=== PATIENT | male | born 1950 | race American Indian/Alaskan Native ===

== ENCOUNTER 2016-11-24 09:54 | Outpatient (CLI) | payer MEDICARE, OTHER ==
--- NOTE | 2016-11-24 13:51 | Nuclear Medicine Report ---
BONE SCAN: History: Malignant neoplasm of prostate. Comparison: Correlation is made with a CT abdomen pelvis performed the same day. After injection of isotope, gamma camera imaging of the bony system was done. There is a normal uptake of isotope throughout the bony structures without areas of significantly increased or decreased uptake. Normal uptake in the urinary system is seen. IMPRESSION: Normal bone scan.
--- NOTE | 2016-11-24 14:18 | Cat Scan Report ---
CT abdomen and pelvis without contrast: Prostate cancer. Transverse images are obtained from lower chest to the ischium with coronal and sagittal 2-D images. The visualized lung bases are clear. A small calculus is noted in the gallbladder. No inflammatory changes noted. There is an 18 mm hypodensity in the periphery of the right upper kidney with a small calcification at its periphery and an 11 mm hypodensity in the lower pole. There is a 2.7 mm hypodensity in the mid left kidney. The attenuation of these lesions is generally 14 which is consistent with water. The partially opacified bowel and mesentery are generally unremarkable. There is no obvious adenopathy. The abdominal aorta is unremarkable except for some tortuosity. The proximal common iliac artery however is aneurysmal with partial calcification of its wall. It has a diameter of just under 3.1 cm and a length of about 3.9 cm. Images of the pelvis are compromised by streak artifact from bilateral hip replacements. No evidence of significant lytic or blastic bone lesion. Impressions: 1. No findings consistent with prostate metastasis. 2. Small gallstone. No inflammation noted. 3. Bilateral renal cysts. 4. Right common iliac artery aneurysm.
== END 2016-11-24 09:55 | disposition home or self-care (01) ==
LOC: NM 09:54
PROVIDERS: ATTEND Urology
DX: C61 Malignant neoplasm of prostate (principal); K80.20 Calculus of gallbladder without cholecystitis without obstruction; N28.1 Cyst of kidney, acquired; N28.89 Other specified disorders of kidney and ureter; I72.3 Aneurysm of iliac artery; I70.8 Atherosclerosis of other arteries; Z96.643 Presence of artificial hip joint, bilateral
CPT/HCPCS: 74176; 78306; A9503

== ENCOUNTER 2017-04-14 05:45 | Day surgery (SDC) | payer MEDICARE ==
[2017-04-14] MEDS ORDERED: NACL BACTERIOSTATIC INFILTRATI ONE (06:56)
[2017-04-14] MEDS ORDERED: ANCEF/STERILE WATER 2 GM/20 ML IV NR (07:00)
[2017-04-14] MEDS ORDERED: GARAMYCIN/NS 80 MG/100 ML 100 ML IV SCH (07:00)
[2017-04-14] MEDS ORDERED: DIPRIVAN 10 MG/ML IV ONE (07:15)
[2017-04-14] MEDS ORDERED: XYLOCAINE MPF 2% ONE (07:15)
[2017-04-14] MEDS ORDERED: DILAUDID ONE (07:15)
--- NOTE | 2017-04-14 07:15 | Anesthesia Consultation ---
Anesthesia Consult and Med Hx Date of service: 04/14/17 - Airway Anesthetic Teeth Evaluation: Good ROM Head & Neck: Adequate Mental/Hyoid Distance: Adequate Mallampati Class: Class II Intubation Access Assessment: Probably Good - Pulmonary Exam CTA: Yes - Cardiac Exam Anesthetic Concerns: irregular rhythm. ekg ordered - Pre-Operative Health Status ASA Pre-Surgery Classification: ASA2 Proposed Anesthetic Plan: General - Pulmonary Hx Smoking: No Hx Sleep Apnea: No (TIO PRE SCREEN LOW RISK.) - Cardiovascular System Hx Hypertension: No - Other Systems Hx Cancer: Yes (prostate)
--- NOTE | 2017-04-14 07:16 | Anesthesia Day of Surgery ---
Anesthesia Day of Surgery - Day of Surgery Patient Examined: Yes Patient H&P Reviewed: Yes Patient is NPO: Yes
[2017-04-14] MEDS ORDERED: VERSED IV NR (08:00)
[2017-04-14] MEDS ORDERED: LACTATED RINGERS 1,000 ML IV SCH (08:00)
[2017-04-14] MEDS ORDERED: PEPCID PO NR (08:00)
[2017-04-14] MEDS ORDERED: VERSED ONE (08:08)
--- NOTE | 2017-04-14 09:11 | Short Stay Summary ---
Short Stay Documentation Date of service: 04/14/17 - History H&P: obtained from office - Allergies and Medications Current Medications: Allergies acetaminophen [From Tylenol] Allergy (Verified 04/09/17 14:48) Nausea Home Medications Medication Instructions Recorded Confirmed Last Taken Type Vanquish 2 tab PO DAILY 04/09/17 04/14/17 1 Week Ago History Active Medications Cefazolin Sodium (Ancef/Sterile Water 2 Gm/20 Ml) 2 gm IV PREOP NR Stop: 04/14/17 23:59 Famotidine (Pepcid) 20 mg PO PREOP NR Stop: 04/14/17 21:00 Last Admin: 04/14/17 07:28 Dose: 20 mg Gentamicin Sulfate/Sodium Chloride (Garamycin/Ns 80 Mg/100 Ml) 100 mls @ 200 mls/hr IV PREOP YUE Stop: 04/14/17 23:59 Lactated Ringer's (Lactated Ringers) 1,000 mls @ 100 mls/hr IV DIRECT YUE Last Admin: 04/14/17 07:30 Dose: 100 mls/hr Midazolam HCl (Versed) 2 mg IV PREOP NR Stop: 04/14/17 23:59 Last Admin: 04/14/17 07:35 Dose: 2 mg - Brief post op/procedure progress note Date of procedure: 04/14/17 Pre-op diagnosis: prostate cancer Post-op diagnosis: same Procedure: prostate seeds Anesthesia: spinal Surgeon: SELINA FAITH Machine Maintenance Supervisor: JUSTINO BARAJAS Estimated blood loss: minimal Pathology: none Condition: stable - Hospital course Hospital course: etsee & renato on chart - Disposition Condition at discharge: Stable Disposition: DC-01 TO HOME OR SELFCARE Short Stay Discharge Plan Follow up with: PRETTY PINK MD [Primary Care Provider] - 7 Days
[2017-04-14] MEDS ORDERED: WATER FOR IRRIG STERILE IR ONE ×2 (09:27)
--- NOTE | 2017-04-14 09:30 | Post Anesthesia Evaluation ---
- Post Anesthesia Evaluation Patient Participated: Yes Airway Patent: Yes Stable Respiratory Function: Yes Nausea/Vomiting: No Temp > 96.8F: Yes Pain Manageable: Yes Adequeate Hydration: Yes Anesthesia Complications: No
--- NOTE | 2017-04-14 09:50 | Operative Report ---
DATE OF SERVICE: 04/14/2017 PREOPERATIVE DIAGNOSES: Prostate cancer, Annie 4+3. POSTOPERATIVE DIAGNOSES: Prostate cancer, Annie 4+3. PROCEDURE: Brachytherapy (iodine 125) and cystoscopy. SURGEON: Jay Oviedo MD RADIATION THERAPY: Joey Mcmahan MD ESTIMATED BLOOD LOSS: Minimal. FLUIDS: Crystalloid. ANESTHESIA: Spinal. INDICATIONS: This patient is a 67-year-old gentleman seen by Ruth Ann Ibarra MD, in the office as well as Alfonso Fu MD. He underwent transrectal ultrasound and biopsies of prostate for PSA of 6.2. He was found to have a [place] 3+4 adenocarcinoma of the prostate, 8 of 14 cores. Discussed options, he agreed to proceed with radiation therapy. He completed his external beam radiation on 03/25/2017, presents now for a seed therapy. DESCRIPTION OF PROCEDURE: The patient was taken to the operative suite, placed in a supine position. After adequate spinal anesthesia, he was placed in a modified dorsal lithotomy position. It was somewhat difficult due to his bilateral hip replacement. Martell catheter was placed to aid in facilitating the ultrasound guidance. A [employer] machine was used with a small amount of saline in the bladder to aid with guidance. Real time cystometry was used. A total of 23 needles were placed, 67 seeds. On completion, cystoscopy was performed. He did have some mild BPH. No seeds or spacers could be appreciated. Martell catheter was placed. He was extubated and taken to recovery room in stable condition. He received a total of 110 Gy of I-125 seeds, 23 needles, 67 seeds. He will have his catheter removed either in the office or at home tomorrow. JOB# [id number] [facility]
--- NOTE | 2017-04-14 11:23 | Operative Report ---
PREOPERATIVE DIAGNOSIS: Group 2A adenocarcinoma of the prostate with a Ashton score of 7. POSTOPERATIVE DIAGNOSIS: Group 2A adenocarcinoma of the prostate with a Annie score of 7. PROCEDURE: Transperineal implantation of the prostate with preloaded stranded iodine-125 seeds to deliver a dose of 110 Gy. SURGEON: Dr. Oviedo. ONCOLOGIST: Dr. Mcmahan. ANESTHESIA: Spinal. INDICATIONS: This is a 67-year-old gentleman who has a history of adenocarcinoma of the prostate with a Annie score of 7 and pretreatment PSA of 9.6. He previously received 45 Gy to the prostate. He now presents for interstitial implantation with iodine-125 seeds. DESCRIPTION OF PROCEDURE: The patient was taken to the operating room and under spinal anesthesia, the patient was placed in the dorsal lithotomy position. A Martell catheter with 200 mL of saline was inserted into the bladder. The ultrasound device was introduced into the rectum and attached to the stepper device. The prostate was oriented in the same dimension as the preplanning ultrasound study. The template grid was attached. A total of 23 needles loaded with 67 iodine-125 seeds were inserted into the template through the perineal skin and prostate gland according to the treatment plan. Proper needle positioning was verified both on axial and sagittal ultrasound imaging. After proper placement of the needle, the seeds were deposited within the prostate gland and the needle was removed. The ultrasound device was then removed from the rectum and Dr. Oviedo performed a rigid cystourethroscopy. No seeds were seen in the urethra or the bladder. No spacers were seen. There was minimal blood clot that was evacuated within the bladder. The patient was then placed in the horizontal position. COMPLICATIONS: None. ESTIMATED BLOOD LOSS: Minimal. DISPOSITION: The patient was taken to recovery and will be discharged to home with a Martell catheter and Flomax medication. He will follow up with the radiation doctor in 3 weeks for a followup CAT scan. JOB# [id number] [facility]
[2017-04-14 14:53] VITALS: BP 118/79
== END 2017-04-14 15:00 | disposition home or self-care (01) ==
LOC: OR 05:45 → EDSTATUS 07:30 → OR 15:00
PROVIDERS: ATTEND Urology
DX: C61 Malignant neoplasm of prostate (principal); Z90.49 Acquired absence of other specified parts of digestive tract; Z96.643 Presence of artificial hip joint, bilateral
CPT/HCPCS: 55875; 77778; 93005; 93010; A4217; C2638; C2639; J0690; J1170; J1580; J2250; J2704; J7120